=== PATIENT | female | born 1950 | race Caucasian/White ===

== ENCOUNTER 2016-07-21 09:49 | Outpatient (CLI) | payer MEDICARE ==
[~2016-07-21 09:49] MED LIST: CITRACAL D + H1 EACH PO; CREON1 EC1 PO; DICLOFENAC 50MG50 MG PO; FOSAMAX70 M1 PO; FUROSEMIDE 20MG20 MG PO; FUROSEMIDE20 MG PO; KLONOPIN1 M2 PO; ONDANSETRON8 M2 PO; PANTOPRAZOLE SO40 MG PO; PROTONIX40 M1 OR; SPIRONOLACTONE25 MG PO; TRIAMTERENE AND1 CAP PO; VENLAFAXINE HCL75 M1 PO; VISTARIL25 MG PO; VITAMIN B122500 MC1 PO
[2016-07-21 09:59] LABS: HEMOGLOBIN 8.6 g/dL (12.2-16.2); LYMPH # 0.7 K/mm3 (0.7-4.5); LYMPH % 61.1 % (10-50.0)
[2016-07-21 10:37] LABS: NEUTROPHILS 32 % (42-76)
[2016-07-31] MEDS ORDERED: DILTIAZEM CD 2240 MG PO (08:39)
[2016-07-31] MEDS ORDERED: DIGOXIN0.125 MG PO (08:39)
[2016-07-31] MEDS ORDERED: METOPROLOL SUC100 M1 PO (08:40)
[2016-07-31] MEDS ORDERED: ASPIRIN MICROT325 MG PO (08:40)
== END 2016-07-21 10:45 | disposition home or self-care (01) ==
LOC: COP 09:49
PROVIDERS: Internal Medicine
DX: D46.9 Myelodysplastic syndrome, unspecified (principal)
CPT/HCPCS: J1642

== ENCOUNTER → 2016-09-03 | Outpatient (CLI) | payer MEDICARE ==
[2016-09-03] VITALS (17 sets, daily range): BP systolic 97–115; BP diastolic 54–100
[~2016-09-03] MED LIST changes: +ASPIRIN MICROT325 MG PO; +DIGOXIN0.125 MG PO; +DILTIAZEM CD 2240 MG PO; +METOPROLOL SUC100 M1 PO
[2016-09-03 09:48] LABS: LYMPH # 0.5 K/mm3 (0.7-4.5); LYMPH % 20.1 % (10-50.0)
[2016-09-03 10:13] LABS: NEUTROPHILS 76 % (42-76)
[2016-09-03 11:35] LABS: ABO BLOOD TYPE A; RH BLOOD TYPE POSITIVE
[2016-09-03 11:36] LABS: ANTIHUMAN GLOB CROSSMATCH COMPAT
== END ==
LOC: COP 09:22
PROVIDERS: Internal Medicine
DX: D46.9 Myelodysplastic syndrome, unspecified (principal)
CPT/HCPCS: J1642; P9016

== ENCOUNTER 2016-09-04 23:05 | Inpatient (IN) | payer MEDICARE, OTHER ==
[~2016-09-04] VITALS: Ht 154.9 cm; Wt 83.1 kg
[2016-09-04 23:13] VITALS: BP 171/99
[2016-09-04 23:55] LABS: HEMOGLOBIN 8.4 g/dL (12.2-16.2); LYMPH # 0.8 K/mm3 (0.7-4.5); LYMPH % 43.2 % (10-50.0)
[2016-09-05] VITALS (8 sets, daily range): BP systolic 101–133; BP diastolic 54–75
[2016-09-05 00:19] LABS: BUN 18 mg/dL (7-18); GFR (ESTIMATED) 72 ML/MIN (59-)
[2016-09-05 00:27] LABS: NEUTROPHILS 51 % (42-76)
--- NOTE | 2016-09-05 01:24 | Emergency Room Report ---
History of Present Illness Time Seen by [id number] Presenting Problem in Triage Pt arrived:Wheelchair Presenting Problem:PT COMPLAINING OF SHORTNESS OF AIR AND PAIN IN HER LEFT BREAST AREA THAT SHE STATES STARTED ABOUT 1900 THIS EVENING. GETS FREQUENT BLOOD TRANSFUSION. SHE HAD A BLOOD TRANSFUSION OF 2 UNITS OF PRBC'S ON 09/03/16. 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 N Clinical Suspician of Infection? N Mental Status: 1 - Regular (Normal Baseline) Sepsis Risk:Low Sepsis Risk Have you (or family members/close friends) recently traveled outside the [place]? N If Yes, where/when: Have you had exposure to infectious disease within the past month? N TB? Other? Specify: Comment The patient complains of shortness of breath, chest pain across her anterior chest which increases with deep breath, chest congestion and coughing of blood that began today. She says she has previous history of a pulmonary was in 10 years ago. Her only current blood thinners aspirin. She denies leg pain or swelling. She has a history of myelodysplastic syndrome and requires recurrent transfusions. She had a transfusion yesterday for a hemoglobin of 6. Afterwards her hemoglobin came up to 8. Her director of partner marketing is Dr. Galeano, primary care physician is Dr. Spears. ALLERGIES Coded Allergies: No Known Allergies (09/04/16) Home Medications Active Scripts DIGOXIN (Digox) 0.125 MG PO DAILY #30 TABLET Prov: 07/31/16 DILTIAZEM HCL (Diltiazem 24HR ER) 240 MG PO DAILY #30 CAP Prov: 07/31/16 METOPROLOL SUCCINATE XL (Metoprolol Succinate) 100 MG PO DAILY #30 TAB Prov: 07/31/16 Aspirin 325 MG PO DAILY #30 TAB Prov: 07/31/16 Reported Medications Venlafaxine Hydrochloride (Venlafaxine XR) 150 MG PO DAILY Spironolactone (Spironolactone) 25 MG PO BID ONDANSETRON HCL (Ondansetron HCl) 8 MG PO Q8HP PRN NAUSEA/VOMMITING Cyanocobalamin (Vitamin B-12) (Vitamin B12) 1,000 MCG PO DAILY Pantoprazole Sodium (Pantoprazole 40MG) 40 MG PO BID Calcium Carb&Cit/D3/Phytostrol (Citracal D + Heart Health Tab) 1 EACH PO DAILY History Medical History General CAD? No Angina: No CA: No Hypertension? Yes Hyperlipidemia? No CHF? No DVT? No PE? No COPD? No Asthma? No Anemia? Yes GERD? No Gastric ulcers? No GI Bleed? No Hernia? No Thyroid Problems? No Hypothyroidism? No CVA? No Seizures? No Diabetes? No Renal Insuffiency? No End Stage Renal Disease? No UTI? Yes Stones? Yes BPH? No GB Disease: Yes Nephritic Syndrome? No Asplenia? No Hepatitis? Yes Sickle Cell Disease? No Arthritis? No Migraines? No Cataracts? No Glaucoma? No MRSA? No HIV? No TB? No Anxiety? Yes Depression? Yes Cancer? No More? Yes Additional hx: MDS BMI 32-32.9 ATRIAL FIB Immunization Hx DT/Tetanus UNKNOWN Flu 2015-FSN Pneumonia Refuses Surgical Hx Previous Surgery?Y GallbladdER Hysterect STOMACH BYPASS BREAST BX'S SHOULDER KNEE FEMUR ELBOW PORT A CATH Family History Family Hx Diabetes Yes Hypertension No Hyperlipidemia No Cancer Yes TB No Social History Smoking Hx Smoker: Never Smoker Tobacco: No Type N/A Packs/day N/A Are you/the child exposed to second-hand smoke: No Alcohol Alcohol: No Review of Systems All Other Systems Reviewed and Negative Constitutional denies fever Respiratory cough, shortness of breath, other (hemoptysis) Cardiovascular chest pain, denies edema Physical Exam Vital Signs Vital Signs Date Time Temp Pulse Resp B/P Pulse O2 O2 Flow FiO2 Ox Delivery Rate 09/05 0134 80 20 140/48 96 2 09/05 0058 75 18 132/71 96 2 09/05 0002 76 18 160/49 95 09/05 0000 94 09/04 2313 98.8 82 18 171/99 95 General Appearance normal appearance, WD/WN Eye Exam - bilateral eye normal exam, bilateral eye PERRL, bilateral eye EOMI Ear, Nose, Throat hearing grossly normal, normal ENT inspection Neck normal inspection, non-tender, supple, full range of motion Respiratory Status Yes: trachea midline, chest symmetrical, non tender chest. No: respiratory distress. Lung Sounds bilateral: normal breath sounds, lungs clear. 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 No Results/Orders Laboratory Tests 09/04/16 2340: Lactic Acid Pending 09/04/160: B-Natriuretic Peptide 114 H 09/04/160: Sodium 143, Potassium 3.6, Chloride 110 H, Carbon Dioxide 20 L, BUN 18, Creatinine 0.8, Estimated Creat Clear 85, Estimated GFR (MDRD) 72, Glucose 108 H, Calcium 7.6 L, Total Bilirubin 0.8, AST 26, ALT 51, Alkaline Phosphatase 170 H, Creatine Kinase 58, CK-MB (CK-2) Rel Index 1.9, CK and CKMB Interp 1.1, Troponin I < 0.02, Total Protein 6.6, Albumin 2.8 L, Globulin 3.8 H, Albumin/ Globulin Ratio 0.7 L, WBC 1.8 *L, RBC 2.49 L, Hgb 8.4 L, Hct 26.2 L, MCV 105.4 H, RDW 26.4 *H, Plt Count 66 L, MPV 7.4, Gran % 44.1, Gran # 0.8 *L, Total Counted 100, Lymphocytes % 43.2, Monocytes % 10.4 H, Eosinophils % 1.7, Basophils % 0.7, Neutrophils 51, Band Neutrophils 6, Lymphocytes (Manual) 38, Lymphocytes # 0.8, Monocytes (Manual) 2, Monocytes # 0.2, Eosinophils # 0.0, Eosinophils # (Manual) 3, Basophils # 0.0, Platelet Estimate MOD DECREASE, Polychromasia 3+, Hypochromasia 2+, Poikilocytosis 2+, Anisocytosis 3+, Macrocytosis 3+, Rouleaux 2+, PUBS MCHC 32.0, MCH 33.7 H Current Medication Orders Sig/Carlyle Start time Last Medication Dose Route Stop Time Status Admin Azithromycin 500 MG ONCE ONE 09/05 0345 AC Sodium Chloride 250 ML IV 09/05 0444 Ceftriaxone Sodium 1 GM ONCE ONE 09/05 0345 AC 09/05 Sodium Chloride 50 ML IV 09/05 0414 0352 Iopamidol 75 ML ONCE ONE 09/05 0345 UNV 09/05 IV 09/05 0346 0343 Sodium Chloride 10 ML PRN PRN 09/05 034 UNV 09/05 IV 09/05 0513 0343 Sodium Chloride 10 ML PRN PRN 09/04 2330 AC IV 09/05 2322 Orders Procedure Date/time Status Decision to admit 09/05 344 Active CULTURE, BLOOD 09/05 034 Active LACTIC ACID 09/05 034 Active CTA-CHEST 09/[address] CHEST W/PE PROTOCOL REQ 09/05 0132 Active BRAIN NATRIURETIC PEPTIDE 09/05 0125 Complete OXYGEN PER NURSE 09/05 0000 Active DIFFERENTIAL-WBC 09/04 2340 Complete ELECTROCARDIOGRAM REQUEST 09/04 2322 Active CHEST-PORTABLE 09/04 232 Active IV SALINE LOCK 09/04 232 Active CBC WITH AUTO DIFF 09/04 2321 Complete CARDIAC ENZYMES 09/04 2321 Complete CHEM 12 PROFILE 09/04 2321 Complete 12 LEAD EKG-BESSON (INITIAL) 09/04 UNK Active CM/EKG CM/EKG Comments EKG interpreted by Zia Curry MD: Rhythm: sinus Rate: 76 [place]: LEFT Ectopy: Premature atrial contractions Conduction: Incomplete RIGHT bundle branch block ST Segment Changes: none T Wave Changes: none Q Waves: none No evidence of acute ischemia or injury Left ventricular hypertrophy with strain XRAY/CT/US XRAY/CT/US XRAY chest Comment X-ray interpreted by Zia Curry M.D.: Pulmonary vascular congestion, Port-A-Cath present CT chest Comment CT scan interpreted by [facility] radiologist. Faxed report received and reviewed: Patchy opacities in the LEFT upper lobe as can be seen with infection. No pulmonary embolus. Small bilateral pleural effusions. Progress - 3:45 AM: I have discussed the case with Dr. Pisano for Dr. Spears who agrees to admit the patient to the hospital. We discussed the patient's clinical information, including history, exam, laboratory and radiology results and ED course. Per hospital procedure, I will write temporary bridge inpatient orders on the patient. Specific orders requested by the admitting physician: Rocephin and Zithromax Departure Departure Disposition Still a Patient Clinical Impression Primary Impression: Community acquired pneumonia Secondary Impressions: Myeloproliferative disorder, Pancytopenia Condition STABLE Referrals Anuel Spears MD (Family) ED Critical Care Critical Care No Critical Care No
--- NOTE | 2016-09-05 08:08 | RADIOLOGY REPORT PS360 ---
CHEST-PORTABLE HISTORY: Shortness of air with chest pain CHEST PAIN, SHORTNESS OF AIR ORDERING PHYSICIAN: Zia Curry MD PATIENT AGE: 66 years COMPARISON: 07/28/2016 FINDINGS: There are low lung volumes. Increased density is present in the perihilar regions likely vascular. Increased markings right lung base consistent atelectasis and/or infiltrate. Chance catheter remains in place IMPRESSION: Low lung volumes with right basilar atelectasis or infiltrate
--- NOTE | 2016-09-05 09:37 | RADIOLOGY REPORT PS360 ---
CTA-CHEST HISTORY: Shortness of air, shortness of breath SOA ORDERING PHYSICIAN: Zia Curry MD PATIENT AGE: 66 years TECHNIQUE: Helical acquisition obtained following the bolus administration of 60 mL of Isovue 370 followed by a saline bolus. Axial, sagittal, and coronal reformatted images are generated and reviewed. COMPARISON: 01/28/2015 FINDINGS: No evidence of pulmonary embolus. The main pulmonary artery is prominent at 3.9 cm with the pulmonary artery/aorta ratio greater than 1. This may be seen with pulmonary arterial hypertension. No evidence of aortic aneurysm or dissection. Calcification is present at the coronary arteries and there is calcific plaque within the aorta. There are small bilateral pleural effusions. Lung apices are excluded. There is mild bronchial thickening. Patchy infiltrate is present in the left upper lobe superiorly and posteriorly. Atelectasis is noted in the lung bases. No mediastinal or hilar mass. There are some small lymph nodes in the subcarinal region There is diffuse hepatic steatosis and there is a 3.7 cm left renal cyst. Sclerosis involves the right aspect of the L2 vertebral body similar to the previous exam of 01/28/2015. There are degenerative changes in the thoracic spine. Mediport catheter present with the tip in the region of the superior vena cava IMPRESSION: 1. No evidence of pulmonary embolus or aortic aneurysm or dissection. 2. Small bilateral effusions with left upper lobe infiltrate/pneumonia and nonspecific bronchial thickening
--- NOTE | 2016-09-05 11:29 | PHARMACY CLINIC NOTE ---
Patient Demographics Patient Demographics Admission date: 09/05/16 Date: 09/05/16 Time: 112 Allergies Coded Allergies: No Known Allergies (09/04/16) HEIGHT- FT: 5 IN: 1.00 K.485 VTE General Information Labs: Laboratory Tests 09/04 2340 Hematology Hgb (12.2 - 16.2 g/dL) 8.4 L Hct (37.0 - 47.0 %) 26.2 L Plt Count (142 - 424 K/mm3) 66 L Disclaimer The following section includes nursing documentation that has been pulled in for pharmacy review. Patient's VTE score: 5 Patient's VTE Risk: LOW RISK Clinical trial participant? No VTE prophylaxis F 0371 VTE prophylaxis ordered? Yes Type of prophylaxis/treatment: DONNA at 0921
--- NOTE | 2016-09-05 12:11 | HISTORY AND PHYSICAL REPORT ---
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 fib, presented to [facility] ER last night complaining of increasing shortness of breath, cough with some hemoptysis and anterior chest pain. Patient had some subjective fever and chills but no known sick contacts. Patient was at the [facility] infusion center the day before admission and received [address] PR[address]s [address] Galeano's orders. Past Medical History: Medical History: CAD? No Angina: No [place]: No Hypertension? Yes Hyperlipidemia? No CHF? No DVT? No PE? No COPD? No Asthma? No Anemia? Yes GERD? No Gastric ulcers? No GI Bleed? No Hernia? No Thyroid Problems? No Hypothyroidism? No CVA? No Seizures? No Diabetes? No Renal Insuffiency? No UTI? Yes Stones? Yes BPH? No GB Disease: Yes Nephritic Syndrome? No Asplenia? No Sickle Cell Disease? No Arthritis? No Migraines? No Cataracts? No Glaucoma? No MRSA? No HIV? No TB? No Anxiety? Yes Depression? Yes Cancer? No More? Yes Additional hx: Myelodyplastic Syndrome - MDS, Dx: 2014 Obesity - BMI 32-32.9 Atrial Fibrillation, Dx: Jul 2016 Surgical history: Previous Surgery?Y Gallbladder Hysterect STOMACH BYPASS BREAST BX'S SHOULDER KNEE FEMUR ELBOW PORT A CATH Medications: Active Scripts DIGOXIN (Digox) 0.125 MG PO DAILY #30 TABLET Prov: 07/31/16 DILTIAZEM HCL (Diltiazem 24HR ER) 240 MG PO DAILY #30 CAP Prov: 07/31/16 METOPROLOL SUCCINATE XL (Metoprolol Succinate) 100 MG PO DAILY #30 TAB Prov: 07/31/16 Aspirin 325 MG PO DAILY #30 TAB Prov: 07/31/16 Reported Medications Venlafaxine Hydrochloride (Venlafaxine XR) 150 MG PO DAILY Spironolactone (Spironolactone) 25 MG PO BID ONDANSETRON HCL (Ondansetron HCl) 8 MG PO Q8HP PRN NAUSEA/VOMMITING Cyanocobalamin (Vitamin B-12) (Vitamin B12) 1,000 MCG PO DAILY Pantoprazole Sodium (Pantoprazole 40MG) 40 MG PO BID Calcium Carb&Cit/D3/Phytostrol (Citracal D + Heart Health Tab) 1 EACH PO DAILY Allergies: Coded Allergies: No Known Allergies (09/04/16) Family History: Family history: Postive for: CAD, DM. Social History: Smoking Hx Tobacco: No Smoker: Never Smoker Type: N/A Packs/day: N/A Are you exposed to second hand No Alcohol: Alcohol: No Hx of Drug Use: Drug Use? No Patien't marital status is: Patient's support system is: good Review of Systems: Patient unresponsive? No Constitutional Positive for: fatigue. ENT Positive for: nasal congestion. Cardiovascular Positive for: chest pain. No: edema. GI No: diarrhea, vomitting. (female) No: hematuria. Skin No: rash. Neurological No: dizziness. Eyes No: vision loss. Musculoskeletal No: joint pain. Psychiatric No: anxious. 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 Lab data: Labs: Laboratory Tests 09/05/16 0440: Lactic Acid 1.3 09/04/16 2340: Lactic Acid 2.5 H 09/04/16 2340: B-Natriuretic Peptide 114 H 09/04/16 2340: Sodium 143, Potassium 3.6, Chloride 110 H, Carbon Dioxide 20 L, BUN 18, Creatinine 0.8, Estimated Creat Clear 85, Estimated GFR (MDRD) 72, Glucose 108 H, Calcium 7.6 L, Total Bilirubin 0.8, AST 26, ALT 51, Alkaline Phosphatase 170 H, Creatine Kinase 58, CK-MB (CK-2) Rel Index 1.9, CK and CKMB Interp 1.1, Troponin I < 0.02, Total Protein 6.6, Albumin 2.8 L, Globulin 3.8 H, Albumin/ Globulin Ratio 0.7 L, WBC 1.8 *L, RBC 2.49 L, Hgb 8.4 L, Hct 26.2 L, MCV 105.4 H, RDW 26.4 *H, Plt Count 66 L, MPV 7.4, Gran % 44.1, Gran # 0.8 *L, Total Counted 100, Lymphocytes % 43.2, Monocytes % 10.4 H, Eosinophils % 1.7, Basophils % 0.7, Neutrophils 51, Band Neutrophils 6, Lymphocytes (Manual) 38, Lymphocytes # 0.8, Monocytes (Manual) 2, Monocytes # 0.2, Eosinophils # 0.0, Eosinophils # (Manual) 3, Basophils # 0.0, Platelet Estimate MOD DECREASE, Polychromasia 3+, Hypochromasia 2+, Poikilocytosis 2+, Anisocytosis 3+, Macrocytosis 3+, Rouleaux 2+, PUBS MCHC 32.0, MCH 33.7 H, Mycoplasma pneumon IgM NON-REACTIVE Microbiology 09/05 548 SPUTUM: Sputum Culture - RES 09/05 548 SPUTUM: Gram Stain - RES 09/05 548 SPUTUM: Organism ID (Sequencing 2)(MISHA) - ORD 09/05 2339 BLOOD: Anaerobic Blood Culture - RECD 09/05 2339 BLOOD: Aerobic Blood Culture - RECD 09/05 2339 BLOOD: Anaerobic Blood Culture - RECD 09/05 2339 BLOOD: Aerobic Blood Culture - RECD Radiology results: Results: CXR shows a RLL pneumonia. CT of chest shows no pulmonary embolus, but shows a HEATHER infiltrate. Diagnosis(es): 1. Community acquired pneumonia Status: Acute 2. Pancytopenia Status: Chronic 3. Myelodysplasia (myelodysplastic syndrome) Status: Chronic 4. GERD (gastroesophageal reflux disease) Status: Chronic 5. HTN (hypertension) Status: Chronic 6. Atrial fibrillation Status: Chronic 7. Obesity Status: Chronic Plan: Patient admitted to [facility] for treatment of community acquired pneumonia. See orders. at 1211
[2016-09-06 04:15] VITALS: BP 124/77
[2016-09-06 06:39] LABS: LYMPH # 0.8 K/mm3 (0.7-4.5); LYMPH % 60.2 % (10-50.0)
[2016-09-06 06:41] LABS: HEMOGLOBIN 7.8 g/dL (12.2-16.2)
[2016-09-06 08:10] VITALS: BP 131/80
[2016-09-06 08:23] LABS: NEUTROPHILS 32 % (42-76)
[2016-09-06 08:27] VITALS: BP 131/80
--- NOTE | 2016-09-06 08:35 | ACUTE CARE PROGRESS NOTE (QUA) ---
Progress Notes Subjective Date 09/06/16 Time 0831 Note Patient reports feeling more short of breath this morning, no other new symptoms. Objective Findings Laboratory Tests 09/06/16 0610: WBC 1.4 *L, RBC 2.12 L, Hgb 7.8 *L, Hct 22.9 *L, MCV 108.2 H, RDW 26.5 *H, Plt Count 57 L, MPV 7.2 L, Gran % 23.1 L, Gran # 0.3 *L, Total Counted 100, Lymphocytes % 60.2 H, Monocytes % 13.7 H, Eosinophils % 2.5, Basophils % 0.5, Neutrophils 32 L, Lymphocytes (Manual) 62 H, Lymphocytes # 0.8, Monocytes # 0.2, Eosinophils # 0.0, Eosinophils # (Manual) 3, Basophils # 0.0, Metamyelocytes 3 H, Differential Comment PLT EST 60, Platelet Estimate MARKED DECREASE, Anisocytosis 2+, Microcytosis 2+, PUBS MCHC 34.1, MCH 36.9 H 09/06/16 0605: Sodium 147 H, Potassium 3.5, Chloride 114 H, Carbon Dioxide 22, BUN 18, Creatinine 0.6, Estimated Creat Clear 119, Estimated GFR (MDRD) 100, Glucose 101 , Calcium 7.1 L, Digoxin 0.49 L Vital Signs Date Time Temp Pulse Resp B/P Pulse O2 O2 Flow FiO2 Ox Delivery Rate 09/06 0827 97.9 82 18 131/80 96 09/06 0810 97.9 82 18 131/80 96 OXYGEN 2 09/06 0548 2 09/06 0548 90 ROOM AIR 09/06 0524 2 09/06 0516 2 09/06 0415 2 09/06 0415 97.9 71 20 124/77 90 OXYGEN 2 09/06 0327 91 ROOM AIR 09/06 0300 2 09/06 0148 2 09/06 0100 2 09/05 2347 2 09/05 2347 98.2 87 20 124/69 94 OXYGEN 2 09/05 2300 2 09/05 2149 2 09/05 2105 98.3 85 20 101/62 94 2 09/05 2100 2 09/05 1921 2 09/05 1921 98.3 85 20 101/62 94 OXYGEN 2 09/05 1846 2 09/05 1844 2 09/05 1701 2 09/05 1600 98.3 75 20 127/71 97 OXYGEN 09/05 1300 2 09/05 1146 98.2 72 20 133/54 98 OXYGEN 09/05 1109 2 09/05 1100 2 09/05 0900 2 I&O Past 24 Hrs-ending at 0700 09/06 0700 Intake Total 1690 Output Total Balance 1690 Last VS-Temp:97.9 B/P:131/80 Pulse:82 Resp:18 SaO2:96 OXYGEN Last weight lbs:177 oz:7 K.485 Method:Bed Scales Exam General appearance: alert, awake, no acute distress Cardiovascular: irregularly irregular Respiratory: crackles (left side more than right), no wheezing ABD: normal bowel sounds, soft, no tenderness Extremities: no peripheral edema Assessment/Plan Problem List 1. Community acquired pneumonia Status: Acute 2. Pancytopenia Status: Chronic 3. Myelodysplasia (myelodysplastic syndrome) Status: Chronic 4. GERD (gastroesophageal reflux disease) Status: Chronic 5. HTN (hypertension) Status: Chronic 6. Atrial fibrillation Status: Chronic 7. Obesity Status: Chronic This inpt stay is expected to cross 2 MNs from start of care Yes Comments: Plan on rechecking CXR today, will add low dose potassium supplement. Antibiotic Stewardship (2) Current Culture Results Microbiology 09/05 548 SPUTUM: Sputum Culture - RES 09/05 548 SPUTUM: Gram Stain - RES 09/05 548 SPUTUM: Organism ID (Sequencing 2)(MISHA) - ORD 09/04 234 BLOOD: Anaerobic Blood Culture - RECD 09/04 234 BLOOD: Aerobic Blood Culture - RECD Infxn that will respond? Yes Right drug,dose,and route? Yes More targeted antbx? No How long atbx needed? 10 at 0835
--- NOTE | 2016-09-06 11:02 | RADIOLOGY REPORT PS360 ---
CHEST(2 VIEWS-NOT PORTABLE) Ordering Physician: Anuel Spears MD Patient Age: 66 years: Female HISTORY: pneumonia TECHNIQUE: PA and lateral chest COMPARISON is made to previous chest film 09/04/2016 as well as yesterday CTA chest 09/05/2016 FINDINGS There is progression of bilateral central infiltrates with additional peribronchial cuffing. Findings do suggest bilateral pneumonic infiltrate likely bronchopneumonia type pattern could be viral etiology. Days most evident at the right perihilar region but there is also a patchy infiltrate more evident now at the left midlung. Left pleural effusion are clearly evident and has shown progression with prominent blunting at the left CP angle and posterior sulcus. The lateral film also demonstrates volume loss at lower lobe with posterior displacement major fissure. Suspect this is most likely left lower lobe but I cannot exclude a also atelectasis right lower lobe. Central line enters from the right subclavian with tip at SVC. Stable, good position. Heart is normal in size. The right mary jane is upper normal prominence Question mild vascular congestion-however more likely we are viewing viewing manifestations of the bilateral infiltrates accentuate markings IMPRESSION: 1. Progression Bilateral pneumonia with left pleural effusion evident .Bilateral perihilar, Central infiltrates w/ peribronchial cuffing /thickening bilaterally. Right chest: Definite progression perihilar infiltrate with ladditional infiltrate/atelectasis right infrahilar towards RLL. Left chest :. Progression of Patchy infiltrate left midlung. LLL airspace disease/pneumonia not now evident.... New left pleural effusion now clearly evident
[2016-09-06 12:07] VITALS: BP 131/84
[2016-09-06 15:53] VITALS: BP 129/72
[2016-09-06 20:15] VITALS: BP 112/65
[2016-09-07] VITALS (8 sets, daily range): BP systolic 123–161; BP diastolic 71–104
--- NOTE | 2016-09-07 08:14 | ACUTE CARE PROGRESS NOTE (QUA) ---
Progress Notes Subjective Date 09/07/16 Time 0809 Note Patient states that her nebulizer treatments make her feel worse. They cause increased shortness of breath and increased heart rate. She denies any pain. She states she did not rest well last night and was restless throughout the night. Objective Findings Last VS-Temp:98.6 B/P:161/104 Pulse:127 Resp:24 SaO2:95 OXYGEN Last weight lbs:182 oz:4 K.667 Method:Bed Scales Exam General appearance: alert, awake, no acute distress Cardiovascular: regular rhythm, tachycardia Respiratory: right lower lobe rales ABD: non-distended, normal bowel sounds, no rebound, soft, no tenderness, no guarding Extremities: no peripheral edema Assessment/Plan Problem List 1. Community acquired pneumonia Status: Acute 2. Pancytopenia Status: Chronic 3. Myelodysplasia (myelodysplastic syndrome) Status: Chronic 4. GERD (gastroesophageal reflux disease) Status: Chronic 5. HTN (hypertension) Status: Chronic 6. Atrial fibrillation Status: Chronic 7. Obesity Status: Chronic Plan: Will continue abx. Awaiting sputum results. Will change duonebs to xopenex. Will discuss another transfusion of 2 units of PRBC's with Dr. Spears. This inpt stay is expected to cross 2 MNs from start of care Yes (Fozia Garcia) Assessment/Plan Problem List 1. Community acquired pneumonia Status: Acute 2. Pancytopenia Status: Chronic 3. Myelodysplasia (myelodysplastic syndrome) Status: Chronic 4. GERD (gastroesophageal reflux disease) Status: Chronic 5. HTN (hypertension) Status: Chronic 6. Atrial fibrillation Status: Chronic 7. Obesity Status: Chronic Comments: Patient seen and agree with above note. H/H stable since discharge. Plan on asking Dr. Galeano to see patient tomorrow. OK to change to Xopenex nebs. (Anuel Spears MD) Antibiotic Stewardship (2) Infxn that will respond? Yes Right drug,dose,and route? Yes More targeted antbx? No (Fozia Garcia) at 0813 at 0905
[2016-09-08] VITALS (7 sets, daily range): BP systolic 118–142; BP diastolic 63–82
[2016-09-08 07:09] LABS: HEMOGLOBIN 8.3 g/dL (12.2-16.2); LYMPH # 0.6 K/mm3 (0.7-4.5); LYMPH % 55.1 % (10-50.0)
--- NOTE | 2016-09-08 08:04 | ACUTE CARE PROGRESS NOTE (QUA) ---
Progress Notes Subjective Date 09/08/16 Time 0800 Note Pt states she is feeling a little better this am. She slept better although her states she did jump out of the bed last night and she is unsure why. Her SOA has improved. She is tolerating her new neb treatments much better. She denies any pain. Objective Findings Last VS-Temp:97.6 B/P:134/81 Pulse:96 Resp:20 SaO2:92 OXYGEN Last weight lbs:183 oz:5 K.149 Method:Bed Scales Laboratory Tests 09/08/16 0610: Sodium 148 H, Potassium 3.7, Chloride 112 H, Carbon Dioxide 25, BUN 15, Creatinine 0.6, Estimated Creat Clear 123, Estimated GFR (MDRD) 100, Glucose 120 H, Calcium 7.7 L, WBC 1.1 *L, RBC 2.30 L, Hgb 8.3 L, Hct 25.3 L, MCV 109.8 H, RDW 26.0 *H, Plt Count 74 L, MPV 6.5 L, Gran % 27.5 L, Gran # 0.3 *L, Lymphocytes % 55.1 H, Monocytes % 14.5 H, Eosinophils % 2.5, Basophils % 0.4, Lymphocytes # 0.6 L, Monocytes # 0.2, Eosinophils # 0.0, Basophils # 0.0, PUBS MCHC 32.8, MCH 36.1 H Exam General appearance: alert, awake, no acute distress Cardiovascular: regular rate & rhythm Respiratory: LLL rales, wheezing throughout but improved ABD: non-distended, normal bowel sounds, no rebound, soft, no tenderness, no guarding Extremities: no peripheral edema Assessment/Plan Problem List 1. Community acquired pneumonia Status: Acute 2. Pancytopenia Status: Chronic 3. Myelodysplasia (myelodysplastic syndrome) Status: Chronic 4. GERD (gastroesophageal reflux disease) Status: Chronic 5. HTN (hypertension) Status: Chronic 6. Atrial fibrillation Status: Chronic 7. Obesity Status: Chronic Plan: Will continue abx. Dr. Ramirez to see today. This inpt stay is expected to cross 2 MNs from start of care Yes (Fozia Garcia) Assessment/Plan Problem List 1. Community acquired pneumonia Status: Acute 2. Pancytopenia Status: Chronic 3. Myelodysplasia (myelodysplastic syndrome) Status: Chronic 4. GERD (gastroesophageal reflux disease) Status: Chronic 5. HTN (hypertension) Status: Chronic 6. Atrial fibrillation Status: Chronic 7. Obesity Status: Chronic Comments: Patient seen and agree with above note. She has improved clinically, continue current treatment. (Anuel Spears MD) Antibiotic Stewardship (2) Infxn that will respond? Yes Right drug,dose,and route? Yes More targeted antbx? No (Fozia Garcia) at [phone] at [phone]
[2016-09-08 10:07] LABS: NEUTROPHILS 34 % (42-76)
--- NOTE | 2016-09-08 22:37 | ACUTE CARE PROGRESS NOTE (QUA) ---
Progress Notes Subjective Date 09/08/16 Time 2229 Note Called by nurse about 9:40 pm tonight due to patient feeling short of breath, nurse thought patient was having issues with anxiety. Vitals reported as BP being normal, HR was 110,O2 sat was 90 % on 3L per NC. One time dose of oral Metoprolol tartrate 50mg and oral Ativan 0.5 mg was ordered. Nurse called back at 10 pm and stated patient had stopped breathing within a couple of minutes of taking the medication. Romero galindo was called and resuscitation failed to revive patient and she had . Spoke to patient's and family members. Assessment/Plan Problem List 1. Community acquired pneumonia Status: Acute 2. Pancytopenia Status: Chronic 3. Myelodysplasia (myelodysplastic syndrome) Status: Chronic 4. GERD (gastroesophageal reflux disease) Status: Chronic 5. HTN (hypertension) Status: Chronic 6. Atrial fibrillation Status: Chronic 7. Obesity Status: Chronic This inpt stay is expected to cross 2 MNs from start of care Yes Comments: KIRSTEN contacted by nursing staff Antibiotic Stewardship (2) Infxn that will respond? Yes Right drug,dose,and route? Yes More targeted antbx? No at [phone]
--- NOTE | 2016-09-13 14:13 | DISCHARGE SUMMARY STANDARD ---
Discharge Summary ([facility]2) Date of admission: 09/05/16 Date of discharge: 09/08/16 Problem List: 1. Community acquired pneumonia 2. Pancytopenia 3. Myelodysplasia (myelodysplastic syndrome) 4. GERD (gastroesophageal reflux disease) 5. HTN (hypertension) 6. Atrial fibrillation 7. Obesity History of present illness: 66 year old female patient of [facility] with a history of myelodysplastic disorder and a recent hospitalization due to new onset A. fib, presented to [facility] ER complaining of increasing shortness of breath, cough with some hemoptysis and anterior chest pain. Patient had some subjective fever and chills but no known sick contacts. Patient was at the [facility] infusion center the day before admission and received 2 units of PRBCs per Dr. Galeano's orders. Exam on admission: Vital signs: 1ST Vital Signs Result Date Time Pulse Ox 95 09/04 2312 B/P 171/99 09/04 2312 Temp 98.8 09/04 2312 Pulse 82 09/043 Resp 18 09/04 2312 O2 Flow Rate 2 09/05 0058 O2 Delivery OXYGEN 09/05 0439 Exam: General appearance: alert, awake, no acute distress Eyes: anicteric ENT: mucous membranes moist Neck: supple Cardiovascular: irregularly irregular Respiratory: basilar rales, crackles (mid left lung field posterior) ABD: normal bowel sounds, soft, no tenderness Extremities: normal capillary refill, no peripheral edema Skin: warm Neuro: supply requirements officer II-XII nml as tested Hospital Course: On admission patient was started on IV antibiotics and Neb Tx. She did not tolerated the Duonebs and was changed to Xopenex nebs which she felt were better. Hgb was low at 7.8 and improved to 8.3. Dr. Galeano was to visit. Her breathing did improve although the pneumonia on CXR was worse. CT was negative for PE. She was eating and drinking well and ambulating to the bathroom. The AM of 09/08/16 Kat was feeling better and SOA had improved. She denied any pain. She had multiple visitors throughout the day. Patient had a sudden onset of SOA with HR at 110 at about 2130. Her nurse thought the patient was having issues with anxiety. Vitals reported as BP being normal; HR was 110,O2 sat was 90 % on 3L per NC. One time dose of oral Metoprolol tartrate 50mg and oral Ativan 0.5 mg was ordered. About 5 minutes after receiving the meds her called for help. The patient was found lying across the bed, cyanotic and not breathing. A code was initiated. Patient was found to be in asystole. Resuscitation attempt failed to revive the patient and she . Dr. Spears spoke to the patient's and family Members. KIRSTEN was called and organ donation was ruled out. Laboratory data this visit: 09/05/16 0440: Lactic Acid 1.3 09/04/16 2340: Lactic Acid 2.5 H 09/04/16 2340: B-Natriuretic Peptide 114 H 09/04/16 2340: Sodium 143, Potassium 3.6, Chloride 110 H, Carbon Dioxide 20 L, BUN 18, Creatinine 0.8, Estimated Creat Clear 85, Estimated GFR (MDRD) 72, Glucose 108 H, Calcium 7.6 L, Total Bilirubin 0.8, AST 26, ALT 51, Alkaline Phosphatase 170 H, Creatine Kinase 58, CK-MB (CK-2) Rel Index 1.9, CK and CKMB Interp 1.1, Troponin I < 0.02, Total Protein 6.6, Albumin 2.8 L, Globulin 3.8 H, Albumin/ Globulin Ratio 0.7 L, WBC 1.8 *L, RBC 2.49 L, Hgb 8.4 L, Hct 26.2 L, MCV 105.4 H, RDW 26.4 *H, Plt Count 66 L, MPV 7.4, Gran % 44.1, Gran # 0.8 *L, Total Counted 100, Lymphocytes % 43.2, Monocytes % 10.4 H, Eosinophils % 1.7, Basophils % 0.7, Neutrophils 51, Band Neutrophils 6, Lymphocytes (Manual) 38, Lymphocytes # 0.8, Monocytes (Manual) 2, Monocytes # 0.2, Eosinophils # 0.0, Eosinophils # (Manual) 3, Basophils # 0.0, Platelet Estimate MOD DECREASE, Polychromasia 3+, Hypochromasia 2+, Poikilocytosis 2+, Anisocytosis 3+, Macrocytosis 3+, Rouleaux 2+, PUBS MCHC 32.0, MCH 33.7 H, Mycoplasma pneumon IgM NON-REACTIVE 09/06/16 0610: WBC 1.4 *L, RBC 2.12 L, Hgb 7.8 *L, Hct 22.9 *L, MCV 108.2 H, RDW 26.5 *H, Plt Count 57 L, MPV 7.2 L, Gran % 23.1 L, Gran # 0.3 *L, Total Counted 100, Lymphocytes % 60.2 H, Monocytes % 13.7 H, Eosinophils % 2.5, Basophils % 0.5, Neutrophils 32 L, Lymphocytes (Manual) 62 H, Lymphocytes # 0.8, Monocytes # 0.2, Eosinophils # 0.0, Eosinophils # (Manual) 3, Basophils # 0.0, Metamyelocytes 3 H, Differential Comment PLT EST 60, Platelet Estimate MARKED DECREASE, Anisocytosis 2+, Microcytosis 2+, PUBS MCHC 34.1, MCH 36.9 H 09/06/16 0605: Sodium 147 H, Potassium 3.5, Chloride 114 H, Carbon Dioxide 22, BUN 18, Creatinine 0.6, Estimated Creat Clear 119, Estimated GFR (MDRD) 100, Glucose 101 , Calcium 7.1 L, Digoxin 0.49 L > SPUTUM CULTURE Final 09/08/16-0826 NORMAL RESPIRATORY K[place] > BLOOD CULTURE ANAEROBIC Final 09/10/16-0928 NO GROWTH AT 5 DAYS Imaging: CXR showed a RLL pneumonia. CT of chest showed no pulmonary embolus, but showed a HEATHER infiltrate. 1. Progression Bilateral pneumonia with left pleural effusion evident Repeat CXR 09/06/16 .Bilateral perihilar, Central infiltrates w/ peribronchial cuffing /thickening bilaterally. Right chest: Definite progression perihilar infiltrate with ladditional infiltrate/atelectasis right infrahilar towards RLL. Left chest :. Progression of Patchy infiltrate left midlung. LLL airspace disease/pneumonia not now evident.... New left pleural effusion now clearly evident Disposition: Body was released to [facility] at 1412
== END 2016-09-08 21:52 | disposition expired | DRG 194 ==
LOC: ER 23:05 → 2ND 09-05 03:47
PROVIDERS: Emergency Medicine; Family Medicine
DX: J18.9 Pneumonia, unspecified organism (principal); D61.818 Other pancytopenia; I48.2 Chronic atrial fibrillation; D46.9 Myelodysplastic syndrome, unspecified; I10 Essential (primary) hypertension; K21.9 Gastro-esophageal reflux disease without esophagitis
CPT/HCPCS: J0456; J1642; P9016; Q9967